=== PATIENT | female | born 1975 | race Caucasian/White ===

== ENCOUNTER 2019-05-30 16:38 | Emergency (ER) | payer SELFPAY ==
[2019-05-30] MEDS ORDERED: Ibuprofen 800 MG TAB ONE (16:55)
--- NOTE | 2019-05-30 17:14 | RAD ---
Exam: Chest 2 views HISTORY:Fever Comparison: None FINDINGS: Lungs: No masses or consolidation. Subtle added density of the mid to lower chest bilaterally may relate to overlying chest wall soft ti ssues. Cardiac silhouette: Normal size Pulmonary vessels: Normal Pleural Spaces: Clear Pneumothorax: None Osseous abnormalities: None of acuity. IMPRESSION: No focal consolidation.
== END 2019-05-30 17:45 | disposition home or self-care (01) ==
LOC: MADERS 16:38
DX: S29.011A Strain of muscle and tendon of front wall of thorax, initial encounter (principal); B34.9 Viral infection, unspecified; W50.0XXA Accidental hit or strike by another person, initial encounter; Y93.72 Activity, wrestling
CPT/HCPCS: 71046; 87804